=== PATIENT | male | born 1990 | race Caucasian/White ===

== ENCOUNTER 2024-03-05 11:15 | Emergency (ER) | payer BC, SELFPAY ==
[2024-03-05] VITALS (9 sets, daily range): BP systolic 133–150; BP diastolic 76–92; PULSE 67–83; RESP 18; TEMP 36.6; O2SAT 95–97; BMI 21.7
--- NOTE | 2024-03-05 12:09 | ED.ALCOHOL ---
HPI - Alcohol General Date Seen: 03/05/24 Chief Complaint: Alcohol/Intoxication Stated Complaint: Alcohol withdrawal symptoms Time Seen by Provider: 03/05/24 11:41 Source: patient Mode of arrival: ambulatory Limitations: no limitations History of Present Illness HPI narrative: Patient is a 33-year-old male with a history of alcohol use disorder presenting to emergency department for concerns of alcohol withdrawal. His last drink today was a 09:00. States for the past year and a half he has been drinking 24 12 ounce light beers a day. States he has gone through withdrawals in the past and this feels similar. States he is feeling very anxious and thinks he had a panic attack earlier. He has also been having some chest discomfort for the past couple days that he states is atypical for him. At this time he is not interested in going to detox because his is currently in labor and he wants to be there for her but is open detox after that as she has good support at this time. No suicidal or homicidal thoughts. No history of withdrawal related seizures or hallucinations. Denies fevers, chills, abdominal pain, weakness, numbness, shortness of breath, headache, vision changes. Related Data Previous Rx's ?Medication ?Instructions ?Recorded chlordiazepoxide HCl 25 mg capsule See Rx Instructions .Route 03/05/24 .COMPLEX PRN #24 caps Allergies Allergy/AdvReac Type Severity Reaction Status Date / Time cefaclor [From Ceclor] Allergy Unknown Verified 03/05/24 11:34 Review of Systems Status of ROS Reports: 10 or more systems reviewed and unremarkable except as noted in History and below PFSH PFSH Social History Smoking Status: Current every day smoker Do you use any of these nicotine containing products: E-Cigarettes Second hand tobacco smoke exposure: No How often do you have a drink containing alcohol: 4 or more times a week How many standard drinks containing alcohol do you have on a typical day: 10 or more How often do you have six or more drinks on one occasion: Daily or almost daily AUDIT-C Alcohol total score: 12 Non-prescribed substance use: marijuana (any form) service: No Exam Narrative: Exam Narrative: Const: Well-nourished, Well-developed, in mild distress Eyes: PERRL, no conjunctival injection, and symmetrical lids HENT: Atraumatic external nose and ears. Moist mucous membranes. Neck: Symmetric, trachea midline, No thyromegaly. CVS: RRR, No murmurs or gallops. Peripheral pulses 2+ and equal in all extremities RESP: Unlabored respiratory effort. Clear to auscultation bilaterally. GI: Nontender/Nondistended, No rebound or guarding. MSK:Extremities w/o deformity, Normal Active ROM Skin: Warm, Dry. No rashes or lesions. Neuro: Normal Muscle tone, No focal neurological deficits. Psych: Awake, Alert, & Oriented x3. Appropriate mood and affect. Const: Vital Signs, click to edit/add: Vital Signs - 24 hr 03/05/24 11:22 03/05/24 12:24 03/05/24 12:25 Temperature 97.9 F Pulse Rate 73 67 Pulse Rate [Pulse Oximeter] 83 Respiratory Rate 18 Blood Pressure 133/92 H Blood Pressure [Ri ght Upper Arm] 150/84 H Pulse Oximetry 95 95 96 Oxygen Delivery Me thod Room Air 03/05/24 12:30 03/05/24 12:31 03/05/24 12:45 Temperature Pulse Rate 75 76 76 Pulse Rate [Pulse Oximeter] Respiratory Rate Blood Pressure 140/90 H Blood Pressure [Ri ght Upper Arm] Pulse Oximetry 96 95 95 Oxygen Delivery Me thod 03/05/24 12:46 03/05/24 13:00 03/05/24 13:01 Temperature Pulse Rate 73 80 80 Pulse Rate [Pulse Oximeter] Respiratory Rate Blood Pressure 133/85 137/76 Blood Pressure [Ri ght Upper Arm] Pulse Oximetry 97 97 97 Oxygen Delivery Me thod Course Vital Signs Vital signs: Initial Vital Signs Temperature 97.9 F 03/05/24 11:22 Temperature Source Temporal Artery Scan 03/05/24 11:22 Pulse Rate 83 03/05/24 11:22 Respiratory Rate 18 03/05/24 11:22 Blood Pressure 150/84 H 03/05/24 11:22 Blood Pressure Mean 106 H 03/05/24 11:22 Blood Pressure Position Sitting 03/05/24 11:22 Pulse Oximetry 95 03/05/24 11:22 Oxygen Delivery Method Room Air 03/05/24 11:22 Vital Signs Temperature 97.9 F 03/05/24 11:22 Pulse Rate 83 03/05/24 11:22 Respiratory Rate 18 03/05/24 11:22 Blood Pressure 150/84 H 03/05/24 11:22 Pulse Oximetry 95 03/05/24 11:22 Oxygen Delivery Method Room Air 03/05/24 11:22 Temperature 97.9 F 03/05/24 11:22 Pulse Rate 80 03/05/24 13:01 Respiratory Rate 18 03/05/24 11:22 Blood Pressure 137/76 03/05/24 13:01 Pulse Oximetry 97 03/05/24 13:01 Oxygen Delivery Method Room Air 03/05/24 11:22 Medications Administered Medications: Generic Name Dose Route Start Last Admin Trade Name Freq PRN Reason Stop Dose Admin Folic Acid 1 mg/ Multivitamins 1,011.2 mls @ 252.8 mls/hr 03/05/24 12:00 03/05/24 12:39 10 ml/ Thiamine HCl 100 mg/ IV 03/05/24 15:59 252.8 mls/hr Sodium Chloride .Q4H CLOVIS Administration Discontinued Medications Generic Name Dose Route Start Last Admin Trade Name Freq PRN Reason Stop Dose Admin Lorazepam 1 mg 03/05/24 12:25 03/05/24 12:30 Lorazepam 1 Mg Tablet PO 03/05/24 12:26 1 mg ONCE ONE Administration MDM - Alcohol MDM Narrative Medical decision making narrative: Patient is a 33-year-old male presenting to emergency department concern for alcohol withdrawal. His last drink was 3 hours prior at this time he is early to be going through withdrawal symptoms but we will treat him same either way. Will give him banana bag. Will do CIWA. Vital signs look stable at this time. Since he is having this chest pain also I will do a troponin, CBC, CMP, EKG. Lab work and EKG showed no concerning abnormalities. He is otherwise doing well at this time. Patient was given Ativan for is anxiety. Will be started on Librium for management of withdrawal symptoms. Is not having any clear signs of withdrawal at this time other than anxiety. Lab Data Labs: Lab Results 03/05/24 Range/Units 12:00 WBC 7.21 (4.50-11.00) K/uL RBC 5.06 (4.30-5.90) m/uL Hgb 16.2 (13.5-17.5) gm/dL Hct 46.5 (37.0-53.0) % MCV 92 (80-100) fL MCH 32 (26-34) pg MCHC 35 (32-36) gm/dL RDW Coeff of Racquel 11.8 (11.5-15.5) % Plt Count 283 (140-440) K/uL Neut % (Auto) 67.2 (42.0-72.0) % Lymph % (Auto) 22.9 (20-44) % Clare % (Auto) 7.9 (0.0-11.0) % Eos % (Auto) 1.2 (0.0-7.0) % Baso % (Auto) 0.7 (0.0-3.0) % Neut # (Auto) 4.84 (1.7-7.0) K/uL Lymph # (Auto) 1.65 (0.90-2.90) K/uL Clare # (Auto) 0.60 (0.00-0.90) K/UL Eos # (Auto) 0.09 (0.00-0.50) K/uL Baso # (Auto) 0.05 (0.00-0.30) K/uL Abs Immat Gran (auto) 0.01 (0.00-0.30) K/uL Imm/Tot Granulo (auto) 0.1 % Sodium 138 (135-149) mmol/L Potassium 3.8 (3.6-5.1) mmol/L Chloride 100 (96-114) mmol/L Carbon Dioxide 24 (20-32) mmol/L Anion Gap 14 (7-15) mEq/L BUN 8 (5-24) mg/dL Creatinine 0.8 (0.5-1.5) mg/dL Estimated Creat Clear 134.82 Estimated GFR 120 ml/min Glucose 78 (60-115) mg/dL Calcium 9.5 (8.4-10.6) mg/dL Total Bilirubin 0.7 (0.1-1.5) mg/dL AST 41 H (12-35) U/L ALT 31 (4-50) U/L Alkaline Phosphatase 81 (40-150) U/L Total Protein 8.1 (6.0-8.3) g/dL Albumin 5.2 H (3.3-5.0) g/dL POC Troponin I 0.00 L (0.01-0.04) ng/ml ECG Data Attestation: I personally reviewed and interpreted this ECG as follows: Prior ECG tracings: not available for review Interpretation: Normal sinus rhythm with rate 72 beats per minute, normal intervals, normal axis, no ST or T-wave abnormalities Discharge Plan Discharge Clinical Impression: Alcohol withdrawal syndrome Qualifiers: Complication of substance-induced condition: with unspecified complication Qualified Code(s): F10.939 - Alcohol use, unspecified with withdrawal, unspecified Patient Disposition: Home, Self-Care Condition: Stable Instructions: Alcohol Withdrawal (DC) Additional Instructions: Return to emergency department for new or worsening symptoms. Use the Librium as directed. Prescriptions: New chlordiazepoxide HCl 25 mg capsule See Rx Instructions .ROUTE .COMPLEX PRNQty: 24 0RF Rx Instructions: Take 50 mg (2 pills) every 8 hours for next 2 days. After that take 25 mg every 8 hours for another 2 days. Then take 25 mg as needed. Follow Up/Referrals: Provider,Not a Local [Primary Care Provider] - Stand Alone Forms: [employer] Info Instructions
--- OUTSIDE RECORDS SUMMARY | 2024-03-05 12:17 | XMS_ITS | Referral Summary ---
Author Organization [facility] Address [address] [place] [id number] Care Team Providers Care Room Service Runner Name Role Phone No Ref-Primary, Physician Primary Care Provider Allergies Active Allergy Reactions Criticality Noted Date Comments Cefaclor Monohydrate 08/16/2012 Medications Medication Sig Dispensed Refills Start Date End Date Status NO ACTIVE MEDICATIONS Act chanelle folic acid (FOLVITE) 1 MG tabletIndications:Alco hol dependence (H) Take 1 tablet by mouth daily. 90 tablet 1 08/18/2012 Active multivitamin, therapeutic with minerals (THERA-VIT-M) TABSIndications:Alcoho l dependence (H) Take 1 tablet by mouth daily. 90 each 1 08/18/2012 Active thiamine 100 MG tabletIndications:Alco hol dependence (H) Take 1 tablet by mouth daily. 90 tablet 1 08/18/2012 Active amoxicillin-clavulanat e (AUGMENTIN) 875-125 MG tablet Take 1 tablet by mouth 2 times daily 20 tablet 04/02/2020 Active Active Problems Problem Noted Date Diagnosed Date Anxiety 08/16/2012 Immunizations Name Administration Dates Next Due TDAP Vaccine (Adacel) 04/02/2020 Social History Tobacco Use Types Packs/Day Years Used Date Smoking Tobacco: Some Days Smokeless Tobacco: Former Alcohol Use Standard Drinks/Week Comments Yes 0 (1 standard drink = 0.6 oz pur e alcohol) daily or couple years Sex and Gender Information Value Date Recorded Sex Assigned at Not on file Gender Identity Not on file Sexual Orientation Not on file Last Filed Vital Signs Vital Sign Reading Time Taken Comments Blood Pressure 143/95 05/05/2020 11:11 AM CDT Pulse 92 05/05/2020 11:11 AM CDT Temperature 37 ??C (98.6 ??F) 05/05/2020 11:11 AM CDT Respiratory Rate 16 05/05/2020 11:11 AM CDT Oxygen Saturation 98% 05/05/2020 11:11 AM CDT Inhaled Oxygen Concentration - - Weight 68 kg (150 lb) 05/05/2020 11:11 AM CDT Height 182.9 cm (6') 05/05/2020 11:11 AM CDT Body Mass Index 20.34 05/05/2020 11:11 AM CDT Plan of Treatment Not on file Advance Directives For more information, please contact: [phone] * Full Code (Latest Code Status on File) Date Activated Date Inactivated Comments 08/16/2012 2:19 PM 08/18/2012 3:12 PM Care Teams Room Service Runner Relationship Specialty Start Date End Date No Ref-Primary, Physician PCP - General 08/16/12
--- OUTSIDE RECORDS SUMMARY | 2024-03-05 12:17 | XMS_ITS | Encounter Summary ---
Author Organization [facility] Address [facility] [place] [address] Care Team Providers Care Mine Laborer Name Role Phone No Ref-Primary, Physician Primary Care Provider Reason for Visit * Reason Onset Date Comments MH/CD Inpatient 12/16/2018 Encounter Details Date Type Department Care Team ([facility] Contact Info) Description 12/16/2018 Telephone [facility] Behavioral Health Intake [address] [place] [address] [phone] Generic, Behavioral Intake, MH/CD Inpatient Social History Tobacco Use Types Packs/Day Years Used Date Smoking Tobacco: Some Days Smokeless Tobacco: Former Alcohol Use Standard Drinks/Week Comments Yes 0 (1 standard drink = 0.6 oz pur e alcohol) daily or couple years Sex and Gender Information Value Date Recorded Sex Assigned at Not on file Gender Identity Not on file Sexual Orientation Not on file documented as of this encounter Miscellaneous Notes * Telephone Encounter - Tami Pichardo - 12/16/2018 4:45 PM CDT S: [place] ED calling with detox request for a 28yo male ETOH. B: Drinks 1 case of beer daily for the past several years. Pt last drank earlier today, breathalyzer was 0.072. Pt endorses THC use a few times a week. Pt denies DT or seizures. Pt denies MH or medical concerns. A: Medically cleared, utox pending, VOL R: Presenting for 3A/[facility]. Pt accepted for placement. Unit charge [facility] accepts disposition, page sent to ED at 5:16pm. documented in this encounter Plan of Treatment Not on file documented as of this encounter Visit Diagnoses Not on filedocumented in this encounter Care Teams Mine Laborer Relationship Specialty Start Date End Date No Ref-Primary, Physician PCP - General 08/16/12 documented as of this encounter
--- OUTSIDE RECORDS SUMMARY | 2024-03-05 12:17 | XMS_ITS | Encounter Summary ---
Author Organization [facility] Address [address] [place] [id number] Care Team Providers Care Project Administrator Name Role Phone No Ref-Primary, Physician Primary Care Provider Reason for Visit * Reason Onset Date Comments CD Outpatient 08/30/2017 [facility]-CD eval Encounter Details Date Type Department Care Team ([facility] st Contact Info) Description 08/30/2017 Telephone [facility] Behavioral Health Intake [address] [place] [phone] Generic, Behavioral Intake, CD Outpatient (P-CD eval) Social History Tobacco Use Types Packs/Day Years [...] encounter Miscellaneous Notes * Telephone Encounter - Yareli Kang - 08/30/2017 9:36 AM CST [facility] ref for CD Eval. appt secured per [facility] Endoscopy Rn. TREASURER documented in this encounter Plan of Treatment Not on file documented as of this encounter Visit Diagnoses Not on filedocumented in this encounter Care Teams Project Administrator Relationship Specialty Start Date End Date No Ref-Primary, Physician PCP - General 08/16/12 documented as of this encounter
--- OUTSIDE RECORDS SUMMARY | 2024-03-05 12:17 | XMS_ITS | Clinical Summary ---
Author Organization [facility] Address [address] [place] [id number] Care Team Providers Care Dental Assistant Name Role Phone No Ref-Primary, Physician Primary [...] Advance Directives For more information, please contact: [phone] * Full Code (Latest Code Status on File) Date Activated Date Inactivated Comments 08/16/2012 2:19 PM 08/18/2012 3:12 PM Care Teams Dental Assistant Relationship Specialty Start Date End Date No Ref-Primary, Physician PCP - General 08/16/12
[2024-03-05 12:19] LABS: Basophils Absolute Auto 0.05 K/uL (0.00-0.30); Basophils Percent Auto 0.7 % (0.0-3.0); Eosinophils Absolute Auto 0.09 K/uL (0.00-0.50); Eosinophils Percent Auto 1.2 % (0.0-7.0); Hematocrit 46.5 % (37.0-53.0); Hemoglobin* 16.2 gm/dL (13.5-17.5); Immature Granulocytes Abs Auto 0.01 K/uL (0.00-0.30); Immature Granulocytes Pct Auto 0.1 %; Lymphocytes Absolute Auto 1.65 K/uL (0.90-2.90); Lymphocytes Percent Auto 22.9 % (20-44); Mean Corpuscular HGB Conc 35 gm/dL (32-36); Mean Corpuscular Hemoglobin 32 pg (26-34); Mean Corpuscular Volume 92 fL (80-100); Monocytes Percent Auto 7.9 % (0.0-11.0); Neutrophils Absolute Auto 4.84 K/uL (1.7-7.0); Neutrophils Percent Auto 67.2 % (42.0-72.0); Platelet Count* 283 K/uL (140-440); RDW Coefficient of Variation % 11.8 % (11.5-15.5); Red Blood Count 5.06 m/uL (4.30-5.90); White Blood Count* 7.21 K/uL (4.50-11.00)
[2024-03-05 12:29] LABS: Slide Review Reflex No
[2024-03-05] MEDS: LORazepam 1 MG TABLET PO (12:30)
[2024-03-05 12:44] LABS: Albumin* 5.2 g/dL (3.3-5.0)
[2024-03-05 12:45] LABS: Chloride* 100 mmol/L (96-114); Potassium* 3.8 mmol/L (3.6-5.1); Sodium* 138 mmol/L (135-149)
[2024-03-05 12:47] LABS: Anion Gap 14 mEq/L (7-15); Aspartate Amino Transferase* 41 U/L (12-35); Bilirubin Total* 0.7 mg/dL (0.1-1.5); Carbon Dioxide* 24 mmol/L (20-32); Creatinine* 0.8 mg/dL (0.5-1.5); Est. Creatinine Clearance* 134.82; Estimated Glomerular Filt Rate 120 ml/min; Total Protein* 8.1 g/dL (6.0-8.3)
[2024-03-05 12:48] LABS: Alanine Aminotransferase* 31 U/L (4-50); Alkaline Phosphatase* 81 U/L (40-150); Blood Urea Nitrogen* 8 mg/dL (5-24); Calcium* 9.5 mg/dL (8.4-10.6); Glucose* 78 mg/dL (60-115)
== END 2024-03-05 13:59 | disposition home or self-care (01) ==
PROVIDERS: Emergency Provider Student in an Organized Health Care Education/Training Program
DX: F10.939 Alcohol use, unspecified with withdrawal, unspecified (principal)
CPT/HCPCS: 36415; 80053; 84484; 85025; 93005; 99283; 99284; A9270; J3411; J7030

== ENCOUNTER 2025-02-12 08:34 | Emergency (ER) | payer BC, SELFPAY ==
[2025-02-12 08:38] VITALS: BP 129/90; PULSE 86; RESP 16; TEMP 37; O2SAT 97; BMI 19.7
--- OUTSIDE RECORDS SUMMARY | 2025-02-12 08:39 | XMS_ITS | Clinical Summary ---
Author Organization [facility] Address [address] [place] [id number] Care Team Providers Care Wildlife And Game Protector Name Role Phone No Ref-Primary, Physician Primary Care Provider Allergies Active Allergy Reactions Criticality Noted Date Comments Cefaclor Monohydrate 08/16/2012 Medications * This document contains information received from the source organization and may not represent a complete record from that organization. NO ACTIVE MEDICATIONS Active folic acid (FOLVITE) 1 MG tabletIndication s:Alcohol dependence (H) Take 1 tablet by mouth daily. 90 tablet 1 08/18/2012 Active multivitamin, therapeutic with minerals (THERA-VIT-M) TABSIndications: Alcohol dependence (H) Take 1 tablet by mouth daily. 90 each 1 08/18/2012 Active thiamine 100 MG tabletIndication s:Alcohol dependence (H) Take 1 tablet by mouth daily. 90 tablet 1 08/18/2012 Active amoxicillin-clav ulanate (AUGMENTIN) 875-125 MG tablet Take 1 tablet by mouth 2 times daily 20 tablet 04/02/2020 Active Active Problems Problem Noted Date Diagnosed Date Anxiety 08/16/2012 Immunizations Immunization Administration Dates Next Due TDAP Vaccine (Adacel) 04/02/2020 Social History Tobacco Use Types Packs/Day Years Used Date Smoking Tobacco: Some Days Smokeless Tobacco: Former Alcohol Use Standard Drinks/Week Comments Yes 0 (1 standard drink = 0.6 oz pur e alcohol) daily or couple years Sex and Gender Information Value Date Recorded Sex Assigned at Not on file Legal Sex Male 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 Gender Identity Not on file Sexual Orientation Not on file Last Filed Vital Signs Vital Sign Reading Time Taken Comments Blood Pressure 143/95 05/05/2020 11:11 AM CDT Pulse 92 05/05/2020 11:11 AM CDT Temperature 37 C (98.6 F) 05/05/2020 11:11 AM CDT Respiratory Rate 16 05/05/2020 11:11 AM CDT Oxygen Saturation 98% 05/05/2020 11:11 AM CDT Inhaled Oxygen Concentration - - Weight 68 kg (150 lb) 05/05/2020 11:11 AM CDT Height 182.9 cm (6') 05/05/2020 11:11 AM CDT Body Mass Index 20.34 05/05/2020 11:11 AM CDT Plan of Treatment Not on file Advance Directives For more information, please contact: [phone] * Full Code (Latest Code Status on File) Date Activated Date Inactivated Comments 08/16/2012 2:19 PM 08/18/2012 3:12 PM Care Teams Wildlife And Game Protector Relationship Specialty Start Date End Date No Ref-Primary, Physician PCP - General 08/16/12
--- NOTE | 2025-02-12 08:51 | CRLHL7_ITS ---
For Patients: As a result of the Century Cures Act, medical imaging exams and procedure reports are released immediately into your electronic medical record. You may view this report before your referring provider. If you have questions, please contact your health care provider. INDICATION: CHEST PAIN, LEFT RIB PAIN TECHNIQUE: Chest 2 views COMPARISON: None FINDINGS: Cardiovascular and mediastinum: Heart size and vasculature are normal in caliber and appearance. Lungs and pleural spaces: Lungs are clear. No sign of infiltrate or mass. No sign of pleural effusion. No pneumothorax. Bones and soft tissues: No significant findings. IMPRESSION: No acute findings. Dictated by Omer Huizar MD @ 02/12/2025 9:30:25 AM (Electronically Signed)
--- NOTE | 2025-02-12 09:20 | ED.GENADULT ---
HPI - General Adult General Date Seen: 02/12/25 Chief complaint: Rib Pain Stated complaint: rib pain Time Seen by Provider: 02/12/25 08:50 History of Present Illness HPI narrative: This is a pleasant generally healthy 34-year-old male presenting to the ER today with left rib pain. He injured his ribs about 1 week ago. He was trying to forcefully close the tailgate on his pickup by leaning against it when he injured his left ribs. He is concerned he probably broke them. He has been trying to get through the pain on his own. He has been taking Tylenol or ibuprofen as needed but notes that the pain is still there and is in fact getting a little bit worse. It hurts when he breathes deeply. He is not really feeling anything grinding or popping. He is not coughing. He is not really short of breath but feels like he is breathing shallowly because of pain. He is able to localize the pain to a specific spot on his left lateral rib cage. No anterior chest pain. No midline back pain. No flank pain. No abdominal pain. He is not under cine bruising or swelling. Related Data Home Medications ?Medication ?Instructions ?Recorded ?Confirmed No Known Home Medications 02/12/25 02/12/25 Allergies Allergy/AdvReac Type Severity Reaction Status Date / Time cefaclor (From Ceclor) Allergy Unknown Verified 02/12/25 08:41 [facility] Social History (Updated 11/24/24 @ 14:14 by Pilar Tolbert~[facility], [facility]) What is your current living situation?: I presently have a place to live Problems where you live: declined to answer In the past 12 months, utilities in danger of being shut off: no In past 12 months, lack of transportation kept you from medical appts, meetings, work, or getting things needed for daily living: no In the past 12 mos, have been you worried that your food would run out before you had money to buy more?: never true In the past 12 mos, the food you bought just didn't last and you didn't have money to buy more?: never true Smoking Status: Current every day smoker Do you use any of these nicotine containing products: E-Cigarettes Second hand tobacco smoke exposure: No How often do you have a drink containing alcohol: 4 or more times a week How many standard drinks containing alcohol do you have on a typical day: 10 or more How often do you have six or more drinks on one occasion: Daily or almost daily AUDIT-C Alcohol total score: 12 Non-prescribed substance use: marijuana (any form) How often does anyone, including family, friends and others, physically hurt you: never How often does anyone, including family, friends and others, insult or talk down to you: rarely How often does anyone, including family, friends and others, threaten you with harm: never How often does anyone, including family, friends and others, scream or curse at you: rarely service: No Health Related Social Needs: Other personal risk factors, not elsewhere classified (Z91.89) Exam Narrative: Exam Narrative: Constitutional: Appears well-developed and well-nourished. Alert. Conversant. Non toxic. HENT: Head: Atraumatic. Nose: Nose normal. Mouth/Throat: Oral mucosa is clear and moist. no trismus. Eyes: Conjunctivae normal. EOM normal. Pupils equal, round, and reactive to light. No scleral icterus. Neck: Normal range of motion. Neck supple. No tracheal deviation present. No JVD Cardiovascular: Normal rate, regular rhythm. No gallop. No friction rub. No murmur heard. Symmetric radial artery pulses Pulmonary/Chest: Effort normal. No stridor. No respiratory distress. No wheezes. No rales. No rhonchi . He has a point area of left lateral rib cage tenderness. No bruising. No crepitus. Abdominal: Soft. Bowel sounds normal. No distension. No mass. No tenderness. No left upper quadrant tenderness. No CVA tenderness. No rebound. No guarding. Musculoskeletal: No midline thoracic or lumbar spine tenderness. RUE: Normal range of motion. No tenderness. No deformity LUE: Normal range of motion. No tenderness. No deformity RLE: Normal range of motion. No edema. No tenderness. No deformity LLE: Normal range of motion. No edema. No tenderness. No deformity Neurological: Alert and oriented to person, place, and time. Normal strength. CN II-VII intact. No sensory deficit. GCS eye subscore is 4. GCS verbal subscore is 5. GCS motor subscore is 6. Normal coordination Skin: Skin is warm and dry. No rash noted. No pallor. Normal capillary refill. Psychiatric: Normal mood. Normal affect. Const: Vital Signs, click to edit/add: Vital Signs - 24 hr 02/12/25 08:38 Temperature 98.6 F Pulse Rate [Pulse Oximeter] 86 Respiratory Rate 16 Blood Pressure [Ri ght Upper Arm] 129/90 H Pulse Oximetry 97 Oxygen Delivery Me thod Room Air Course Vital Signs Vital signs: Initial Vital Signs Temperature 98.6 F 02/12/25 08:38 Temperature Source Temporal Artery Scan 02/12/25 08:38 Pulse Rate 86 02/12/25 08:38 Pulse Rhythm Regular 02/12/25 08:38 Pulse Strength 3+ Normal 02/12/25 08:38 Respiratory Rate 16 02/12/25 08:38 Blood Pressure 129/90 H 02/12/25 08:38 Blood Pressure Mean 103 02/12/25 08:38 Blood Pressure Position Sitting 02/12/25 08:38 Pulse Oximetry 97 02/12/25 08:38 Oxygen Delivery Method Room Air 02/12/25 08:38 Vital Signs Temperature 98.6 F 02/12/25 08:38 Pulse Rate 86 02/12/25 08:38 Respiratory Rate 16 02/12/25 08:38 Blood Pressure 129/90 H 02/12/25 08:38 Pulse Oximetry 97 02/12/25 08:38 Oxygen Delivery Method Room Air 02/12/25 08:38 Temperature 98.6 F 02/12/25 08:38 Pulse Rate 86 02/12/25 08:38 Respiratory Rate 16 02/12/25 08:38 Blood Pressure 129/90 H 02/12/25 08:38 Pulse Oximetry 97 02/12/25 08:38 Oxygen Delivery Method Room Air 02/12/25 08:38 Medications Administered Medications: Discontinued Medications Generic Name Dose Route Start Last Admin Trade Name Freq PRN Reason Stop Dose Admin Ibuprofen 600 mg 02/12/25 09:00 02/12/25 08:56 Ibuprofen 200 Mg Tablet PO 02/12/25 09:01 Not Given ONCE ONE Medical Decision Making MDM Narrative Medical decision making narrative: This patient presents for evaluation after a injury to the left lateral chest. The patient has good breath sounds in all [place] and no hypoxia or tachycardia. There is no large hematoma or contusion or chest wall crepitus or flail segment.. No deformity. Chest x-ray shows no rib fracture, pneumothorax, hemothorax, or pulmonary contusion. He is not having any pain or tenderness in the left upper quadrant, left flank to raise suspicion for splenic, renal injury. No midline back pain to raise concern for T-spine fracture or L-spine fracture. With clear musculoskeletal reproducible pain I do not think he needs workup for ACS, PE, or other causes for atraumatic chest pain. X-rays are negative for fracture or hemothorax or pneumothorax. Discussed sensitivity of plain films for fracture. Patient had discussed that clinically I suspect there is truly a fracture. With reasonable clinical certainty, I believe the patient is safe for discharge and can be safely managed as an outpatient. The patient was given return precautions and follow up instructions, they state understanding of these and ability to comply. Pain control as above. The patient was given for pain control and deep breathing exercises to prevent atelectasis. and instructed to follow up as an outpatient. Imaging Data Chest x-ray: Attestation: I have reviewed the pertinent imaging results. My impression: No visible fracture. No pneumothorax. No pleural effusion. No gas in the soft tissue. Radiologist's impression: IMPRESSION: No acute findings. Discharge Plan Discharge Clinical Impression: Traumatic injury of rib Patient Disposition: Home, Self-Care Condition: Stable Instructions: Rib Fracture (ED) Additional Instructions: As we discussed, your x-rays look good. We do not see any sign of rib fracture, punctured lung, or other injury. However, I suspect that you truly do have a broken rib. This will heal over time. You can treat your pain with Tylenol or ibuprofen if needed. Try to avoid strenuous activities or other activities that exacerbate your pain. Monitor your condition carefully. Come back to the ER right away if you have any concerns-especially if you have worsening pain, trouble breathing, fever, abdominal pain, kidney pain or blood in your urine. Prescriptions: No Action No Known Home Medications Follow Up/Referrals: Deon Berger MD [Primary Care Provider, Family Practice] Stand Alone Forms: [employer] Info Instructions
== END 2025-02-12 09:59 | disposition home or self-care (01) ==
PROVIDERS: Emergency Provider Emergency Medicine; PCP Family Medicine
DX: S29.9XXA Unspecified injury of thorax, initial encounter (principal); W22.8XXA Striking against or struck by other objects, initial encounter
CPT/HCPCS: 71046; 99282; 99283

== ENCOUNTER 2025-04-22 09:42 | Outpatient (CLI) | payer BC, SELFPAY | END 2025-04-22 09:43 | disposition home or self-care (01) | LOC: NFLDREF 04-28 16:05 | PROVIDERS: PCP Family Medicine; Referring Provider Family Medicine; Visit Provider Family Medicine | DX: Z00.00 Encounter for general adult medical examination without abnormal findings (principal) | CPT/HCPCS: 80053 ==